=== PATIENT | male | born 2000 | race Caucasian/White ===

== ENCOUNTER 2022-04-27 15:38 | Emergency (ER) | payer OTHER ==
[~2022-04-27] VITALS: Ht 180.3 cm; Wt 70.8 kg
[2022-04-27 17:45] VITALS: BP 127/81
== END 2022-04-27 17:45 | disposition home or self-care (01) ==
LOC: ED 15:38
DX: S81.012A Laceration without foreign body, left knee, initial encounter (principal); W26.9XXA Contact with unspecified sharp object(s), initial encounter; Y92.59 Other trade areas as the place of occurrence of the external cause; Y99.0 Civilian activity done for income or pay
CPT/HCPCS: 90715

== ENCOUNTER → 2022-05-04 | Outpatient (CLI) | payer OTHER ==
--- NOTE | 2022-05-04 16:39 | NUR ---
3 sutures removed at this time. Patient reports that on suture broke and he pulled it out prior to arrival today.
== END ==
LOC: AMSURD 15:44
DX: Z01.89 Encounter for other specified special examinations (principal)